=== PATIENT | male | born 1985 | race Caucasian/White ===

== ENCOUNTER → 2017-05-09 | Outpatient (CLI) | payer BC ==
--- NOTE | 2017-05-09 09:29 | DIAGNOSTIC IMAGING REPORT ---
ABDOMEN LIMITED (US) CLINICAL HISTORY: 32 years-old Male presenting with B19.20,K76.0. TECHNIQUE: Real-time grayscale and limited color Doppler ultrasound imaging of the abdomen limited to the right upper quadrant was performed. COMPARISON: 10/03/2014. FINDINGS: Pancreas: Largely obscured due to overlying bowel gas. Liver: Hyperechogenic parenchyma with heterogeneous echotexture, likely indicating steatosis or fibrosis. Hypoechogenicity along the gallbladder fossa likely fatty sparing. No sonographic evidence of hepatic mass. Main portal vein patent with normal directional flow. Biliary: No intrahepatic biliary ductal dilatation. Common bile duct measures up to 3 mm in diameter. Gallbladder: No evidence of gallstones, gallbladder wall thickening, gallbladder distention, or pericholecystic fluid or inflammatory change. Right kidney: Normal in appearance. No hydronephrosis. Ascites: None. IMPRESSION: 1. Hyperechogenic and heterogeneous liver parenchyma likely indicates underlying steatosis or fibrosis. Electronically signed by: Maninder Palumbo M.D. 05/09/2017 9:28 AM Dictated Date/Time: 05/09/2017 9:25 AM
== END | disposition home or self-care (01) ==
LOC: C.ULTR 08:48
PROVIDERS: ATTEND Internal Medicine Gastroenterology
DX: B19.20 Unspecified viral hepatitis C without hepatic coma (principal); K76.0 Fatty (change of) liver, not elsewhere classified